=== PATIENT | female | born 1960 | race Caucasian/White ===

== ENCOUNTER 2020-10-05 13:58 | Inpatient (IN) ==
[2020-10-05] MEDS ORDERED: methylPREDNISolone SOD SUC 125 MG/2 ML VIAL IV STA (16:19)
[2020-10-05] MEDS ORDERED: FUROSEMIDE 40 MG/4 ML VIAL IV STA (16:19)
[2020-10-05] MEDS ORDERED: LABETALOL 20 MG/4 ML SYRINGE IV STA ×2 (16:24→17:21)
[2020-10-05 16:50] LABS: Basophils % 0.4 % (0.0-0.8); Eosinophils % 0.2 % (0.00-10.9); Hemoglobin 11.7 GM/DL (12.0-16.0); Immature Granulocytes % 0.5 %; Immature Granulocytes Absolute 0.03 #; Lymphocytes # 0.7 10*3/uL (1.4-4.0); Lymphocytes % 12.1 % (21.3-54.2); Mean Corpuscular HGB Conc 30.8 GM/DL (32-36); Mean Corpuscular Volume 87.6 FL (87-102); Mean Platelet Volume 12.8 FL (9.6-12.0); Monocytes % 9.1 % (1.7-12.7); Neutrophils % 77.7 % (38.7-73.9); Platelet Count 181 T/CUMM (130-400); Red Blood Count 4.34 MC/CUMM (3.8-5.5); Red Cell Distribution Width 18.3 % (9.3-17.3); White Blood Count 5.7 T/CUMM (4-12)
[2020-10-05 17:04] LABS: Albumin 3.5 G/DL (3.4-5.0); Bilirubin,Total 1.6 MG/DL (0.20-1.00); Calcium 9.2 MG/DL (8.5-10.1); Osmolality,Calculated 300.4 MOS/KG (273-304); Potassium 3.7 MMOL/L (3.5-5.1); Total Protein 6.9 G/DL (6.4-8.2)
[2020-10-05] MEDS ORDERED: ENOXAPARIN 100 MG/ML SYRINGE SUBCUT STA (17:36)
[2020-10-05] MEDS ORDERED: ASPIRIN 325 MG TABLET PO STA (17:36)
[2020-10-05 17:49] LABS: INR 1.1; PT Patient Result 12.6 SECS (10.5-12.0)
[2020-10-05] MEDS ORDERED: ONDANSETRON 4 MG/2 ML VIAL IV PRN (18:18)
[2020-10-05] MEDS ORDERED: GLUCAGON 1 MG VIAL IM PRN (18:18)
[2020-10-05] MEDS ORDERED: DEXTROSE 50% 25 GM/50 ML VIAL IV PRN (18:18)
[2020-10-05] MEDS ORDERED: hydrALAZINE 20 MG/1 ML VIAL IV PRN (18:18)
[2020-10-05] MEDS ORDERED: ACETAMINOPHEN 325 MG TABLET PO PRN (18:18)
[2020-10-05 19:33] LABS: Risk Ratio 3.93; Thyroid Stimulating Hormone 1.64 uIU/ml (0.358-3.74); VLDL Cholesterol 25.8 MG/DL
[2020-10-05] MEDS: hydrALAZINE 25 MG TABLET PO SCH (20:54)
[2020-10-05] MEDS: carvediloL 6.25 MG TABLET PO SCH (20:54)
[2020-10-05] MEDS: INSULIN LISPRO 100 UNIT/ML SUBCUT SCH (20:54)
[2020-10-06 01:57] LABS: Basophils % 0.2 % (0.0-0.8); Hematocrit 35.3 VOL% (35.7-47.0); Hemoglobin 10.8 GM/DL (12.0-16.0); Immature Granulocytes % 1.3 %; Immature Granulocytes Absolute 0.08 #; Lymphocytes # 0.5 10*3/uL (1.4-4.0); Mean Corpuscular HGB Conc 30.6 GM/DL (32-36); Mean Corpuscular Volume 85.1 FL (87-102); Mean Platelet Volume 12.3 FL (9.6-12.0); Monocytes % 1.9 % (1.7-12.7); Neutrophils % 88.6 % (38.7-73.9); Platelet Count 185 T/CUMM (130-400); Red Blood Count 4.15 MC/CUMM (3.8-5.5); Red Cell Distribution Width 18.1 % (9.3-17.3); White Blood Count 6.3 T/CUMM (4-12)
[2020-10-06 02:43] LABS: Calcium 8.9 MG/DL (8.5-10.1); Osmolality,Calculated 300.8 MOS/KG (273-304); Potassium 3.6 MMOL/L (3.5-5.1)
[2020-10-06] MEDS: carvediloL 6.25 MG TABLET PO SCH ×2 (09:16→16:18)
[2020-10-06] MEDS: ISOSORBIDE MONONITRATE 60 MG TABLET PO SCH (09:17)
[2020-10-06] MEDS: hydrALAZINE 25 MG TABLET PO SCH ×3 (09:17→21:25)
[2020-10-06] MEDS: ASPIRIN CHEW 81 MG TABLET PO SCH (09:17)
[2020-10-06] MEDS: PANTOPRAZOLE 40 MG TABLET PO SCH (09:17)
[2020-10-06] MEDS: FUROSEMIDE 40 MG/4 ML VIAL IV SCH ×2 (09:17→16:18)
[2020-10-06] MEDS: ENOXAPARIN 40 MG/0.4 ML SYRINGE SUBCUT SCH (09:18)
[2020-10-06] MEDS: INSULIN GLARGINE 100 UNIT/ML SUBCUT SCH (09:18)
[2020-10-06] MEDS: INSULIN LISPRO 100 UNIT/ML SUBCUT SCH ×4 (09:38→21:26)
[2020-10-06 18:41] LABS: Barbiturates Screen,Urine Negative (Negative); Benzodiazepines Screen,Urine Negative (Negative); Cannabinoid Screen,Urine Negative (Negative); Opiate Screen,Urine Negative (Negative); Phencyclidine Screen,Urine Negative (Negative)
[2020-10-07 04:47] LABS: Basophils % 0.3 % (0.0-0.8); Eosinophils # 0.1 10*3/uL (0.0-0.87); Eosinophils % 1.4 % (0.00-10.9); Hematocrit 31.7 VOL% (35.7-47.0); Hemoglobin 9.8 GM/DL (12.0-16.0); Immature Granulocytes % 0.2 %; Immature Granulocytes Absolute 0.01 #; Lymphocytes # 1.5 10*3/uL (1.4-4.0); Lymphocytes % 22.2 % (21.3-54.2); Mean Corpuscular HGB Conc 30.9 GM/DL (32-36); Mean Corpuscular Volume 85.7 FL (87-102); Mean Platelet Volume 12.1 FL (9.6-12.0); Neutrophils % 66.9 % (38.7-73.9); Platelet Count 182 T/CUMM (130-400); Red Cell Distribution Width 17.7 % (9.3-17.3); White Blood Count 6.6 T/CUMM (4-12)
[2020-10-07 05:13] LABS: Calcium 8.4 MG/DL (8.5-10.1)
[2020-10-07] MEDS ORDERED: POTASSIUM CHLORIDE 20 MEQ TABLET PO PRN (06:37)
[2020-10-07] MEDS ORDERED: SPIRONOLACTONE 25 MG TABLET PO SCH (09:00)
[2020-10-07] MEDS: FUROSEMIDE 40 MG/4 ML VIAL IV SCH ×2 (09:08→16:58)
[2020-10-07] MEDS: ISOSORBIDE MONONITRATE 60 MG TABLET PO SCH (09:08)
[2020-10-07] MEDS: carvediloL 6.25 MG TABLET PO SCH (09:08)
[2020-10-07] MEDS: INSULIN GLARGINE 100 UNIT/ML SUBCUT SCH (09:08)
[2020-10-07] MEDS: PANTOPRAZOLE 40 MG TABLET PO SCH (09:08)
[2020-10-07] MEDS: ENOXAPARIN 40 MG/0.4 ML SYRINGE SUBCUT SCH (09:08)
[2020-10-07] MEDS: hydrALAZINE 25 MG TABLET PO SCH ×2 (09:09→16:58)
[2020-10-07] MEDS: ASPIRIN CHEW 81 MG TABLET PO SCH (09:09)
[2020-10-07] MEDS: INSULIN LISPRO 100 UNIT/ML SUBCUT SCH ×3 (10:06→16:59)
[2020-10-07 16:12] VITALS: BP 117/71
[2020-10-07] MEDS ORDERED: carvediloL 12.5 MG TABLET PO SCH (17:00)
== END 2020-10-07 19:17 | disposition home or self-care (01) | DRG 291 ==
LOC: N.ED 13:58 → SUATTDRO 18:12 → N.EDINP 18:12 → N.TELEN 20:10
PROVIDERS: ADMIT Internal Medicine; ATTEND Hospitalist